=== PATIENT | male | born 1975 | race Caucasian/White ===

== ENCOUNTER 2017-06-13 06:36 | Emergency (ER) | payer BC ==
[2017-06-13] MEDS ORDERED: Albuterol/Ipratropium 3.0-0.5 MG/3 ML Neb Soln NEB ONE (07:02)
--- NOTE | 2017-06-13 08:00 | EDM.PDOC ---
ED HPI GENERAL MEDICAL PROBLEM - General Chief Complaint: Respiratory Problem Stated Complaint: DIFFICULTY BREATHING Time Seen by Provider: 06/13/17 06:57 Source of Information: Reports: Patient History Limitations: Reports: No Limitations - History of Present Illness INITIAL COMMENTS - FREE TEXT/NARRATIVE: The patient presents with a cough and shortness of breath. This all started about 2 days ago. The shortness of breath started about midnight at work. He got off the nigh shift and came in. He does not feel like he has a fever, chills or body aches. Over 3 weeks ago he had influenza B. He felt good a few days ago and started another week of work. He has no chest pain, abdominal pain , nausea or vomiting. He does not smoke and he has no asthma or COPD. Onset: Gradual Duration: Day(s): (2) Severity: Moderate Improves with: Reports: None Worsens with: Reports: None Associated Symptoms: Reports: Cough, Shortness of Breath. Denies: Chest Pain, Fever/Chills, Headaches, Nausea/Vomiting - Related Data Allergies Allergy/AdvReac Type Severity Reaction Status Date / Time No Known Allergies Allergy Verified 06/13/17 06:45 Home Meds: Home Meds Azithromycin [IJD: Azithromycin] 250 mg PO DAILY #6 tab 06/13/17 [Rx] Codeine/Promethazine [Phenergan with Codeine] 5 - 10 ml PO Q6HR PRN #240 ml [Rx] Past Medical History Respiratory History: Reports: Bronchitis, Recurrent Neurological History: Reports: Headaches, Chronic, Migraines - Past Surgical History GI Surgical History: Reports: Appendectomy, Hernia, Inguinal Musculoskeletal Surgical History: Reports: Knee Replacement, Shoulder Surgery Social & Family History - Family History Family Medical History: Noncontributory - Tobacco Use Smoking Status *Q: Never Smoker - Caffeine Use Caffeine Use: Reports: Energy Drinks, Soda - Recreational Drug Use Recreational Drug Use: No ED ROS GENERAL - Review of Systems Review Of Systems: See Below Constitutional: Reports: No Symptoms HEENT: Reports: No Symptoms Respiratory: Reports: Shortness of Breath, Cough Cardiovascular: Reports: No Symptoms Endocrine: Reports: No Symptoms GI/Abdominal: Reports: No Symptoms : Reports: No Symptoms Musculoskeletal: Reports: No Symptoms ED EXAM, GENERAL - Physical Exam Exam: See Below Exam Limited By: No Limitations General Appearance: Alert, No Apparent Distress Ears: Normal External Exam Nose: Normal Inspection Head: Atraumatic, Normocephalic Neck: Normal Inspection Respiratory/Chest: No Respiratory Distress, Normal Breath Sounds, Wheezing Cardiovascular: Regular Rate, Rhythm, No Edema, No Murmur GI/Abdominal: Soft, Non-Tender, No Organomegaly, No Mass Back Exam: Normal Inspection Extremities: Normal Inspection Neurological: Alert, Oriented, No Motor/Sensory Deficits Course - Vital Signs Last Recorded V/S: Last Vital Signs Temp 97.0 F 06/13/17 06:45 Pulse 87 06/13/17 06:45 Resp 28 H 06/13/17 06:45 BP 143/99 H 06/13/17 06:45 Pulse Ox 97 06/13/17 07:21 - Orders/Labs/Meds Orders: Active Orders 24 hr Category Date Time Status RT Aerosol Therapy [RC] ASDIRECTED Care 06/13/17 07:02 Active CXR [Chest 2V] [CR] Stat Exams 06/13/17 07:01 Taken Meds: Medications Discontinued Medications Generic Name Dose Route Start Last Admin Trade Name Freq PRN Reason Stop Dose Admin Albuterol/Ipratropium 3 ml 06/13/17 07:02 06/13/17 07:21 Duoneb 3.0-0.5 Mg/3 Ml NEB 06/13/17 07:03 3 ml ONETIME ONE Administration - Re-Assessments/Exams Free Text/Narrative Re-Assessment/Exam: 06/13/17 07:58 I ordered a duoneb treatment and a CXR. His CXR shows an area of consolidation to the left lung. It looks like some pneumonia. I will get him on some zithromax and something for cough. Departure - Departure Time of Disposition: 08:05 Disposition: Home, Self-Care 01 Condition: Good Clinical Impression: Pneumonia Qualifiers: Pneumonia type: due to unspecified organism Laterality: left Lung location: lower lobe of lung Qualified Code(s): J18.1 - Lobar pneumonia, unspecified organism - Discharge Information Prescriptions: Codeine/Promethazine [Phenergan with Codeine] 5 - 10 ml PO Q6HR PRN #240 ml PRN Reason: Cough Azithromycin [IJD: Azithromycin] 250 mg PO DAILY #6 tab Referrals: PCP,None [Primary Care Provider] - Elizabeth Sheppard [Physician] - 1 Week Additional Instructions: Take the zithromax 2 pills on day 1 and 1 pill on day 2 through 5. Use the albuterol inhaler 2 puffs every 4 to 6 hours as needed for shortness of breath. Use the phenergan with codeine 5mls to 10mls every 6 hours as needed for cough. Please return if you are worse. - My Orders Last 24 Hours: My Active Orders 06/13/17 07:01 CXR [Chest 2V] [CR] Stat 06/13/17 07:02 RT Aerosol Therapy [RC] ASDIRECTED - Assessment/Plan Last 24 Hours: My Active Orders 06/13/17 07:01 CXR [Chest 2V] [CR] Stat 06/13/17 07:02 RT Aerosol Therapy [RC] ASDIRECTED
--- NOTE | 2017-06-13 09:38 | CR ---
Chest: Two views of the chest were obtained. Comparison: No previous chest x-ray. Linear density is noted within the lingula. Lungs otherwise are clear. Heart size and mediastinum are normal. Bony structures are within normal limits for the patient's age. Impression: 1. Linear density within the lingula compatible with incidental atelectasis or scar. 2. Nothing acute is otherwise seen on two-view chest x-ray. Diagnostic code #2
== END 2017-06-13 08:39 | disposition home or self-care (01) ==
LOC: JD.ED 06:36
DX: J18.9 Pneumonia, unspecified organism (principal); Z79.2 Long term (current) use of antibiotics
CPT/HCPCS: 71046; 71046-26; 94640; 99283; 99285-25